=== PATIENT | female | born 1960 | race Caucasian/White ===

== ENCOUNTER 2019-05-13 17:05 | Emergency (ER) | payer BC ==
[~2019-05-13] VITALS: Ht 170.2 cm; Wt 86.4 kg
[2019-05-13 17:17] VITALS: BP 139/95
[2019-05-13] MEDS ORDERED: LIDOcaine 1% w/epiNEPHrine 1:200,000 30ml vial IM ONE (17:40)
[2019-05-13] MEDS ORDERED: TETanus/Pertussis (Acell)/Diphther VAC/PF (Tdap-Adult) 0.5ml syringe IM ONE (17:40)
== END 2019-05-13 18:38 | disposition home or self-care (01) ==
LOC: ER 17:05
DX: S51.011A Laceration without foreign body of right elbow, initial encounter (principal); W25.XXXA Contact with sharp glass, initial encounter; Y93.89 Activity, other specified; Y92.89 Other specified places as the place of occurrence of the external cause; Y99.8 Other external cause status
CPT/HCPCS: 12002; 90471; 90715; 99283; J3490